=== PATIENT | male | born 1990 | race Two or more races ===

== ENCOUNTER 2018-10-16 23:11 | Emergency (ER) | payer MEDICAID ==
[~2018-10-16] VITALS: Ht 177.8 cm; Wt 131.5 kg
[2018-10-16 23:20] VITALS: BP 133/89
--- NOTE | 2018-10-16 23:20 | NUR ---
ED Nurse Note: PT WALKED IN FOR MED REFILL, PT STATES HE TAKES KEPPRA 1000MG BID. WILL CONT MONITOR.
[2018-10-16] MEDS ORDERED: KEPPRA1000 MG ORAL (23:33)
--- NOTE | 2018-10-16 23:33 | Emergency Room Report ---
History of Present Illness General Chief Complaint: Medication Refill Source: Patient Present Illness HPI This is a 28-year-old male with a history of new onset seizure. He is taking Keppra. He presents with chief complaint of medication refill. He has 1 dose left. He is scheduled to see primary care doctor next week for the first time. He needs refill. Denies any seizure activity. No other complaint. Allergies: Coded Allergies: No Known Allergies (Unverified , 10/16/18) Patient History Past Medical History: see triage record, old chart reviewed, seizures Past Surgical History: none Pertinent Family History: none Social History: Denies: smoking Immunizations: other Reviewed Nursing Documentation: PMH: Agreed; PSxH: Agreed Nursing Documentation-PMH Past Medical History: No History, Except For Hx Seizures: Yes Review of Systems Eye: Denies: eye pain, blurred vision ENT: Denies: ear pain, nose congestion, throat swelling Respiratory: Denies: cough, shortness of breath Cardiovascular: Denies: chest pain, palpitations Gastrointestinal: Denies: abdominal pain, diarrhea, nausea, vomiting Musculoskeletal: Denies: back pain, joint pain Skin: Denies: rash Neurological: Denies: headache, numbness Endocrine: Denies: increased thirst, increased urine Hematologic/Lymphatic: Denies: easy bruising All Other Systems: negative except mentioned in HPI Physical Exam Vital Signs Date Time Temp Pulse Resp B/P (MAP) Pulse Ox O2 Delivery O2 Flow Rate FiO2 10/16/18 23:20 98.2 85 18 133/89 (104) 100 Room Air Vitals normal Sp02 EP Interpretation: reviewed, normal General Appearance: well appearing, no apparent distress, alert Head: normocephalic, atraumatic Eyes: bilateral eye PERRL, bilateral eye EOMI ENT: hearing grossly normal, normal pharynx Neck: full range of motion, supple, no meningismus Respiratory: chest non-tender, lungs clear, normal breath sounds Cardiovascular #1: regular rate, rhythm, no murmur Gastrointestinal: normal bowel sounds, non tender, no mass, no organomegaly, no bruit, non-distended Musculoskeletal: back normal, gait/station normal, normal range of motion Psychiatric: mood/affect normal Medical Decision Making Diagnostic Impression: Primary Impression: Encounter for medication refill ER Course Here for refill on his Keppra. No active seizure. Last Vital Signs Date Time Temp Pulse Resp B/P (MAP) Pulse Ox O2 Delivery O2 Flow Rate FiO2 10/16/18 23:20 98.2 85 18 133/89 (104) 100 Room Air Status: unchanged Disposition: HOME, SELF-CARE Condition: Stable Scripts Levetiracetam (KEPPRA) 1,000 Mg Tablet 1000 MG ORAL DAILY, #60 TAB 0 Refills Prov: Oswaldo Ferraro MD 10/16/18 Referrals: NOT CHOSEN [facility]/,REFERRING (PCP) Patient Instructions: Medicine Refill at the Emergency Department Additional Instructions: Follow-up with your doctor next week as scheduled. Return if worse. Oswaldo Ferraro MD Oct 16, 2018 23:33
--- NOTE | 2018-10-16 23:35 | NUR ---
ED Nurse Note: PT CLEARED TO BE D/C PER ERMD, PT DISCHARGE AND AFTERCARE INSTRUCTION PROVIDED W/ PRESCRIPTION, PT EDUCATION DONE VIA DISCUSSION AND HANDOUT, PT ADVISED TO FOLLOW UP WITH PCP OR RETURN TO ED IF CHANGES IN CONDITION, VSS, AMBULATORY W/ STEADY GAIT, LEFT W/ ALL BELONGINGS, ACCOMPANIED BY .
[2018-10-16 23:36] VITALS: BP 128/76
== END 2018-10-16 23:36 | disposition home or self-care (01) ==
LOC: EMR 23:23
DX: Z76.0 Encounter for issue of repeat prescription (principal); G40.909 Epilepsy, unspecified, not intractable, without status epilepticus
CPT/HCPCS: 99282

== ENCOUNTER 2019-06-04 20:03 | Emergency (ER) | payer SELFPAY ==
[~2019-06-04] VITALS: Ht 175.3 cm; Wt 136.1 kg
[~2019-06-04 20:03] MED LIST: KEPPRA1000 MG ORAL
[2019-06-04 20:20] VITALS: BP 140/85
--- NOTE | 2019-06-04 20:20 | NUR ---
ED Nurse Note: Patient walked in to ER c/o facial spasm and headache x1. Patient reports hx of seizures; compliant with medication. Last sz was october 2018. Patient presentd anxious, crying, aAO x4, VSS at this time, ski is warm to touch.
[2019-06-04] MEDS ORDERED: Acetaminophen 500mg (ES) tab ORAL ONE (20:30)
[2019-06-04] MEDS ORDERED: DiphenhydrAMINE 50mg/ml Inj IVP ONE (20:30)
--- NOTE | 2019-06-04 20:46 | Diagnostic Imaging Report ---
EXAM: CT Head Without Intravenous Contrast CLINICAL HISTORY: H/A TECHNIQUE: Axial computed tomography images of the head/brain without intravenous contrast. CTDI is 53 mGy and DLP is 1095 mGy-cm. One or more of the following dose reduction techniques were used: automated exposure control, adjustment of the mA and/or kV according to patient size, use of iterative reconstruction technique. COMPARISON: No relevant prior studies available. FINDINGS: Brain: Negative for mass, mass-effect or intracranial hemorrhage. No significant white matter disease. Ventricles: Unremarkable. No ventriculomegaly. Bones/joints: Unremarkable. No acute fracture. Soft tissues: Unremarkable. Sinuses: Unremarkable as visualized. No acute sinusitis. Mastoid air cells: Unremarkable as visualized. No mastoid effusion. IMPRESSION: No acute intracranial abnormality.
--- NOTE | 2019-06-04 20:53 | Emergency Room Report ---
History of Present Illness General Chief Complaint: Headache Source: Patient Present Illness HPI 28-year-old male yesterday felt like he was about to have a seizure but did not have a seizure he felt his left face started twitching and a mild headache, no known aggravating or relieving factors severity was mild lasting few minutes patient was worried became very anxious he currently takes 1 g of Keppra every day twice a day. Patient did not have bowel bladder incontinence no tongue biting patient presents for evaluation Allergies: Coded Allergies: No Known Allergies (Unverified , 10/16/18) Patient History Past Medical History: see triage record Reviewed Nursing Documentation: PMH: Agreed; PSxH: Agreed Nursing Documentation-PMH Past Medical History: No History, Except For Hx Seizures: Yes Review of Systems All Other Systems: negative except mentioned in HPI Physical Exam Vital Signs Date Time Temp Pulse Resp B/P (MAP) Pulse Ox O2 Delivery O2 Flow Rate FiO2 06/04/19 20:12 98.4 92 14 140/85 (103) 95 Room Air Sp02 EP Interpretation: reviewed, normal General Appearance: well appearing, no apparent distress, alert Head: normocephalic, atraumatic Eyes: bilateral eye PERRL, bilateral eye EOMI ENT: uvula midline, moist mucus membranes Neck: supple, thyroid normal, supple/symm/no masses Respiratory: lungs clear, no respiratory distress, no retraction, no accessory muscle use Cardiovascular #1: normal peripheral pulses, regular rate, rhythm, no edema, no gallop, no murmur Gastrointestinal: non tender, soft, no guarding, no rebound Musculoskeletal: normal inspection Neurologic: alert, oriented x3 Psychiatric: anxious Skin: no rash, warm/dry Medical Decision Making Diagnostic Impression: Primary Impression: Headache Qualified Codes: R51 - Headache ER Course 28-year-old male no red flags of headache patient may have had a focal seizure however remains to be determined, twitching self resolved, patient also utilizes marijuana occasionally We will provide patient with a headache cocktail CT scan is currently negative, will obtain blood work to determine if there is any electrolyte abnormalities will provide patient with his home dose of Keppra Disposition home with return precautions Patient patient will follow-up with neurology Laboratory Tests Test 06/04/19 20:50 White Blood Count 12.1 K/UL (4.8-10.8) H Red Blood Count 5.19 M/UL (4.70-6.10) Hemoglobin 14.8 G/DL (14.2-18.0) Hematocrit 47.2 % (42.0-52.0) Mean Corpuscular Volume 91 FL (80-99) Mean Corpuscular Hemoglobin 28.6 PG (27.0-31.0) Mean Corpuscular Hemoglobin Concent 31.4 G/DL (32.0-36.0) L Red Cell Distribution Width 13.8 % (11.6-14.8) Platelet Count 297 K/UL (150-450) Mean Platelet Volume 8.0 FL (6.5-10.1) Neutrophils (%) (Auto) 64.1 % (45.0-75.0) Lymphocytes (%) (Auto) 25.7 % (20.0-45.0) Monocytes (%) (Auto) 8.0 % (1.0-10.0) Eosinophils (%) (Auto) 0.7 % (0.0-3.0) Basophils (%) (Auto) 1.5 % (0.0-2.0) Prothrombin Time 10.0 SEC (9.30-11.50) Prothrombin Time INR 0.9 (0.9-1.1) Activated Partial Thromboplast Time 29 SEC (23-33) Sodium Level 146 MMOL/L (136-145) H Potassium Level 4.8 MMOL/L (3.5-5.1) Chloride Level 107 MMOL/L (98-107) Carbon Dioxide Level 27 MMOL/L (21-32) Anion Gap 12 mmol/L (5-15) Blood Urea Nitrogen 14 mg/dL (7-18) Creatinine 0.8 MG/DL (0.55-1.30) Estimate Glomerular Filtration Rate > 60 mL/min (>60) Glucose Level 96 MG/DL (74-106) Calcium Level 9.2 MG/DL (8.5-10.1) Total Bilirubin Pending Aspartate Amino Transferase (AST) Pending Alanine Aminotransferase (ALT) Pending Alkaline Phosphatase Pending Total Protein Pending Albumin Pending Globulin Pending CT/MRI/US Diagnostic Results CT/MRI/US Diagnostic Results : Impression Procedure: CT Head no Contrast EXAM: CT Head Without Intravenous Contrast CLINICAL HISTORY: H/A TECHNIQUE: Axial computed tomography images of the head/brain without intravenous contrast. CTDI is 53 mGy and DLP is 1095 mGy-cm. One or more of the following dose reduction techniques were used: automated exposure control, adjustment of the mA and/or kV according to patient size, use of iterative reconstruction technique. COMPARISON: No relevant prior studies available. FINDINGS: Brain: Negative for mass, mass-effect or intracranial hemorrhage. No significant white matter disease. Ventricles: Unremarkable. No ventriculomegaly. Bones/joints: Unremarkable. No acute fracture. Soft tissues: Unremarkable. Sinuses: Unremarkable as visualized. No acute sinusitis. Mastoid air cells: Unremarkable as visualized. No mastoid effusion. IMPRESSION: No acute intracranial abnormality. Dictated By: Nura Garcia DO Electronically Signed By: Nura Garcia DO Signed Date/Time 06/04/192044 CC: Rony Ruiz MD Last Vital Signs Date Time Temp Pulse Resp B/P (MAP) Pulse Ox O2 Delivery O2 Flow Rate FiO2 06/04/19 20:12 98.4 92 14 140/85 (103) 95 Room Air Disposition: HOME, SELF-CARE Condition: Stable Referrals: [facility]. [facility] Patient Instructions: General Headache Without Cause Additional Instructions: The patient was provided with discharge instructions, notified to follow-up with a primary care doctor and or specialist in the next 24-48 hours, and to return to the ED if they have worsening of their symptoms. Please note that this report is being documented using [employer] technology. This can lead to erroneous entry secondary to incorrect interpretation by the dictating instrument. Rony Ruiz MD Jun 04, 2019 20:53
[2019-06-04 21:17] LABS: BASOPHILS % (AUTO) 1.5 % (0.0-2.0); EOSINOPHILS % (AUTO) 0.7 % (0.0-3.0); HEMATOCRIT 47.2 % (42.0-52.0); HEMOGLOBIN 14.8 G/DL (14.2-18.0); LYMPHOCYTES % (AUTO) 25.7 % (20.0-45.0); MEAN CORPUSCULAR VOLUME 91 FL (80-99); NEUTROPHILS % (AUTO) 64.1 % (45.0-75.0); PLATELET COUNT 297 K/UL (150-450); RED BLOOD COUNT 5.19 M/UL (4.70-6.10); RED CELL DISTRIBUTION WIDTH 13.8 % (11.6-14.8); WHITE BLOOD COUNT 12.1 K/UL (4.8-10.8)
[2019-06-04 21:19] LABS: INR 0.9 (0.9-1.1)
[2019-06-04 21:26] LABS: ANION GAP 12 mmol/L (5-15); BLOOD UREA NITROGEN 14 mg/dL (7-18); CALCIUM 9.2 MG/DL (8.5-10.1); CARBON DIOXIDE 27 MMOL/L (21-32); CHLORIDE 107 MMOL/L (98-107); CREATININE 0.8 MG/DL (0.55-1.30); POTASSIUM 4.8 MMOL/L (3.5-5.1); SODIUM 146 MMOL/L (136-145)
[2019-06-04 21:30] VITALS: BP 140/85
[2019-06-04 21:30] LABS: ALANINE AMINOTRANSFERASE 36 U/L (12-78); ALBUMIN 4.2 G/DL (3.4-5.0); ALBUMIN/GLOBULIN RATIO 1.1 (1.0-2.7); ALKALINE PHOSPHATASE 84 U/L (46-116); ASPARTATE AMINO TRANSFERASE 32 U/L (15-37); BILIRUBIN,TOTAL 0.5 MG/DL (0.2-1.0)
--- NOTE | 2019-06-04 21:30 | NUR ---
ED Nurse Note: Pt cleared by health care Provider for discharge. DC instructions/prescription was given and explained to pt and verbalized understanding of teachings. All medical deviecs such as ID band removed. Pt is AAO x4, ambulatory and left with all personal belongings.
== END 2019-06-04 21:30 | disposition home or self-care (01) ==
LOC: EMR 20:49
DX: R51 Headache (principal); G40.909 Epilepsy, unspecified, not intractable, without status epilepticus; Z79.899 Other long term (current) drug therapy
CPT/HCPCS: 36415; 70450; 80053; 80299; 85025; 85610; 85730; 96361; 96374; 96375; 99284; J0780; J1200; J7030

== ENCOUNTER 2020-02-26 17:02 | Emergency (ER) | payer MEDICAID ==
[~2020-02-26] VITALS: Ht 177.8 cm; Wt 147.9 kg
--- NOTE | 2020-02-26 17:30 | NUR ---
ED Nurse Note: pt presents to ED c/o dizziness and palpitations off and on for last few months. pt thinks that it may be related to him stopping his keppra. pt states that he ran out of his keppra and last had some 1 month ago. pt also reports numbness behind his eyes. no other complaints at this time
[2020-02-26 17:32] VITALS: BP 137/79
--- NOTE | 2020-02-26 17:46 | Emergency Room Report ---
History of Present Illness General Chief Complaint: General Complaint Source: Patient (Chinyere Pruitt PA-C) Present Illness HPI 29-year-old male with past medical history of seizures presents today with symptoms of dizziness. He states the dizziness began about 3 weeks ago, occurs every other day and last for about 5 minutes. He states when he is anxious he feels the symptoms come on and relaxing makes the symptoms go away. Other associated symptoms are heart palpitations which patient states that he has been experiencing for years. He denies any fevers chills nausea or vomiting. Denies any current headache. Location is head, severity is mild. Of note patient states he takes 1000 mg of Keppra twice daily however he states he ran out of the medication 1 month ago. He states he does have a primary care doctor however he has not gone in to see him for refill. PMH: Seizure disorder PSH: [Denies] Smoking: Confirms less than 1 pack a day Ethanol: [Denies] Drug: Marijuana usage (Chinyere Pruitt PA-C) Allergies: Coded Allergies: No Known Allergies (Unverified , 10/16/18) COVID-19 Screening Contact w/high risk pt: No Experienced COVID-19 symptoms?: No COVID-19 Testing performed DIRECTOR OF SOCIAL SERVICES: No (Chinyere Pruitt PA-C) Nursing Documentation-PMH Past Medical History: No History, Except For Hx Seizures: Yes (Chinyere Pruitt PA-C) Review of Systems Narrative Review of systems: CONST: No fevers or chills, No night sweats EYES: No eye pain, vision change, eye discharge HEAD/EARS/NOSE/THROAT: No earache, sore throat, or nasal discharge. PULMONARY: No SOB, no cough, no wheezing CARDIAC: No chest pain, + palpitations, no leg swelling GI: No abdominal pain, no vomiting, no diarrhea , no melena or BRBPR : No flank pain, no dysuria, no hematuria, no frequency. MUSCULOSKELETAL: No back pain, no neck pain, no leg pain SKIN: No rash, no itching, no bruising NEUROLOGICAL: No headache, + dizziness, no paresthesia , no focal weakness. 14 point Review of Systems is otherwise negative except per HPI (Chinyere Pruitt PA-C) Physical Exam Vital Signs Date Time Temp Pulse Resp B/P (MAP) Pulse Ox O2 Delivery O2 Flow Rate FiO2 02/26/20 17:09 98.2 103 17 137/79 (98) 99 Room Air Other Organ Systems Physical Exam: GENERAL: Awake, alert, nontoxic, in no acute distress EYES: EOMI, conjunctiva without pallor HEAD/EARS/NOSE/THROAT: NCAT, oral mucosa moist, external nose and ear normal in appearance, oropharynx clear, no swelling or exudates. NECK: supple, nontender, no spasm, no JVD, no cervical adenopathy RESPIRATORY: no stridor, effort normal, no retractions, no accessory muscle use, BS clear bilaterally, no wheezes, no rhonchi, no rales, no rub. CARDIOVASCULAR: RRR, normal S1 S2, no murmur, no peripheral edema ABDOMINAL /GI: soft, nondistended, nontender, BS normal, no masses, no guarding, no Mcburneys point tenderness, no rebound, no Murpheys sign : No CVA tenderness MUSCULOSKELETAL: All extremities are non-tender, no swelling, FROM, normal strength, normal sensation, cap refill <2 seconds in all extremities EXTREMITIES: no leg swelling, pulses: 2+ brisk and normal in all distal extremities SKIN: No rash, skin is warm and dry. No cyanosis, no pallor NEUROLOGICAL: awake, alert and appropriate, oriented x3, speech normal, motor and sensation grossly intact, CN 2-12 intact, Finger to nose normal, no nystagmus, tandem gait normal, no pronator drift PSYCHIATRIC: Normal mood, normal affect (Chinyere Pruitt PA-C) Medical Decision Making PA Attestation Dr. Begum Is my supervising Physician whom patient management has been discussed with. (Chinyere Pruitt PA-C) Diagnostic Impression: Primary Impression: Dizziness ER Course Pt. presents to the ED c/o dizziness Ddx considered but are not limited to peripheral vertigo (including BPPV, vestibular neuritis, Menieres disease, viral labyrinthitis), causes of central vertigo (including cerebellar ischemic stroke, hemorrhagic stroke, acoustic neuroma, vertebrobasilar insufficiency), malignant arrhythmias, obstructive heart disease (critical aortic stenosis, hypertrophic cardiomyopathy), acute anemia, severe dehydration, electrolyte abnormalities, among others. Vital signs: are WNL, pt. is afebrile ORDERS: Labs, EKG, urine drug screen, orthostatics ED INTERVENTIONS and MDM DISCHARGE: The patient denies any external blood loss and has no significant pallor or evidence of acute anemia as a cause of their symptoms. Hemoglobin is not severely low, and acute blood transfusion is not indicated. EKG shows no signs of malignant arrhythmia such as Brugada syndrome, delta wave, significant heart block, or QTc >500. In addition, the patient has no loud murmur or evidence of significant obstructive heart disease, symptoms are not in the setting of exertion. Labs show no severe electrolyte derangement such as severe hyponatremia, hypokalemia, acidosis, or hypoglycemia. Orthostatics done and WNL. Urine drug screen came back positive for marijuana however patient admits to smoking marijuana. Do not suspect overdose on drugs or intoxication at this time. The patient is neurologically intact, with normal cerebellar exam, without any evidence of central vertigo as a cause of their symptoms. They appear well hydrated without any evidence of severe dehydration or acute hypovolemia. The patient was observed for a period of time, with symptoms improved, and no emergent cause of their symptoms. The patient appears stable for discharge and to follow up with their regular doctor. Patient does state that he has a seizure disorder and that he ran out of his Keppra 1 month ago and therefore Keppra prescription was refilled at this time however I explained to patient he needs to follow-up with his primary care doctor for further prescriptions. At this time pt. is stable for d/c to home. Will provide printed patient care instructions, and any necessary prescriptions. Care plan and follow up instructions have been discussed with the patient prior to discharge. Laboratory Tests Test 02/26/20 17:45 02/26/20 18:45 White Blood Count 11.1 K/UL (4.8-10.8) H Red Blood Count 5.38 M/UL (4.70-6.10) Hemoglobin 15.7 G/DL (14.2-18.0) Hematocrit 48.8 % (42.0-52.0) Mean Corpuscular Volume 91 FL (80-99) Mean Corpuscular Hemoglobin 29.2 PG (27.0-31.0) Mean Corpuscular Hemoglobin Concent 32.3 G/DL (32.0-36.0) Red Cell Distribution Width 13.5 % (11.6-14.8) Platelet Count 293 K/UL (150-450) Mean Platelet Volume 7.6 FL (6.5-10.1) Neutrophils (%) (Auto) 74.4 % (45.0-75.0) Lymphocytes (%) (Auto) 14.8 % (20.0-45.0) L Monocytes (%) (Auto) 8.6 % (1.0-10.0) Eosinophils (%) (Auto) 0.8 % (0.0-3.0) Basophils (%) (Auto) 1.4 % (0.0-2.0) Sodium Level 138 MMOL/L (136-145) Potassium Level 4.1 MMOL/L (3.5-5.1) Chloride Level 104 MMOL/L (98-107) Carbon Dioxide Level 26 MMOL/L (21-32) Anion Gap 8 mmol/L (5-15) Blood Urea Nitrogen 16 mg/dL (7-18) Creatinine 0.8 MG/DL (0.55-1.30) Estimated Glomerular Filtration Rate > 60 mL/min (>60) Glucose Level 112 MG/DL (74-106) H Calcium Level 8.8 MG/DL (8.5-10.1) Total Bilirubin 0.3 MG/DL (0.2-1.0) Aspartate Amino Transferase (AST) 28 U/L (15-37) Alanine Aminotransferase (ALT) 37 U/L (12-78) Alkaline Phosphatase 83 U/L (46-116) Total Protein 7.6 G/DL (6.4-8.2) Albumin 3.9 G/DL (3.4-5.0) Globulin 3.7 g/dL Albumin/Globulin Ratio 1.1 (1.0-2.7) Urine Opiates Screen Negative (NEGATIVE) Urine Barbiturates Screen Negative (NEGATIVE) Phencyclidine (PCP) Screen Negative (NEGATIVE) Urine Amphetamines Screen Negative (NEGATIVE) Urine Benzodiazepines Screen Negative (NEGATIVE) Urine Cocaine Screen Negative (NEGATIVE) Urine Marijuana (THC) Screen Positive (NEGATIVE) H (Chinyere Pruitt PA-C) EKG Diagnostic Results Troponin ordered: No - sxs not cardiac related, no chest pain, no risk factors EKG Time: 17:41 Rate: normal Rhythm: NSR ST Segments: no acute changes Other Impression No acute ST or T wave changes ASA given to the pt in ED: No PA Scribe Text This interpretation was scribed by the PA (Chinyere Pruitt PA-C) Last Vital Signs Date Time Temp Pulse Resp B/P (MAP) Pulse Ox O2 Delivery O2 Flow Rate FiO2 02/26/20 17:32 103 17 Room Air 02/26/20 17:32 98.2 137/79 99 Status: improved (Chinyere Pruitt PA-C) Disposition: HOME, SELF-CARE Condition: Stable Scripts Levetiracetam (KEPPRA) 1,000 Mg Tablet 1000 MG ORAL BID, #60 TAB 0 Refills Prov: Xiomara Andrade 02/26/20 Referrals: [facility],REFERRING (PCP) Patient Instructions: Dizziness Additional Instructions: Take medications as directed. Follow up with a Primary Care Provider in 1-2 days, even if your symptoms have resolved. Return sooner to ED if new symptoms occur, or current symptoms become worse. - Please note that this Emergency Department Report was dictated using [employer] timers technology software, occasionally this can lead to erroneous entry secondary to interpretation by the dictation equipment. Chinyere Pruitt PA-C Feb 26, 2020 17:46 Maksim Begum MD Feb 27, 2020 03:31
[2020-02-26 18:00] VITALS: BP 121/74
[2020-02-26 18:00] LABS: BASOPHILS % (AUTO) 1.4 % (0.0-2.0); EOSINOPHILS % (AUTO) 0.8 % (0.0-3.0); HEMATOCRIT 48.8 % (42.0-52.0); HEMOGLOBIN 15.7 G/DL (14.2-18.0); LYMPHOCYTES % (AUTO) 14.8 % (20.0-45.0); MEAN CORPUSCULAR VOLUME 91 FL (80-99); MONOCYTES % (AUTO) 8.6 % (1.0-10.0); NEUTROPHILS % (AUTO) 74.4 % (45.0-75.0); PLATELET COUNT 293 K/UL (150-450); RED BLOOD COUNT 5.38 M/UL (4.70-6.10); RED CELL DISTRIBUTION WIDTH 13.5 % (11.6-14.8); WHITE BLOOD COUNT 11.1 K/UL (4.8-10.8)
--- NOTE | 2020-02-26 18:01 | NUR ---
ED Nurse Note: orthostatics- lyin/74 HR: 88 sitting up: 128/83 HR: 97 standing up: 128/79 HR: 99
[2020-02-26 18:14] LABS: ANION GAP 8 mmol/L (5-15); BLOOD UREA NITROGEN 16 mg/dL (7-18); CALCIUM 8.8 MG/DL (8.5-10.1); CARBON DIOXIDE 26 MMOL/L (21-32); CHLORIDE 104 MMOL/L (98-107); CREATININE 0.8 MG/DL (0.55-1.30); POTASSIUM 4.1 MMOL/L (3.5-5.1); SODIUM 138 MMOL/L (136-145)
[2020-02-26 18:19] LABS: ALANINE AMINOTRANSFERASE 37 U/L (12-78); ALBUMIN 3.9 G/DL (3.4-5.0); ALBUMIN/GLOBULIN RATIO 1.1 (1.0-2.7); ALKALINE PHOSPHATASE 83 U/L (46-116); ASPARTATE AMINO TRANSFERASE 28 U/L (15-37); BILIRUBIN,TOTAL 0.3 MG/DL (0.2-1.0)
[2020-02-26] MEDS ORDERED: KEPPRA1000 MG ORAL (18:32)
[2020-02-26 18:46] VITALS: BP 121/74
--- NOTE | 2020-02-26 19:46 | NUR ---
ER DISCHARGE NOTE: Patient is cleared to be discharged per ERMD, pt is aox4, on room air, with stable vital signs. pt was given dc and prescription instructions, pt was able to verbalize understanding, pt id band removed without complications. pt is able to ambulate with steady gait. pt took all belongings.
--- NOTE | 2020-02-27 20:37 | Cardiology Report ---
APPROVED REPORT EKG Measurement Heart [id number] <Conclusion> Normal sinus rhythm Normal ECG
== END 2020-02-26 19:46 | disposition home or self-care (01) ==
LOC: EMR 17:26
DX: R42 Dizziness and giddiness (principal); G40.909 Epilepsy, unspecified, not intractable, without status epilepticus; F17.200 Nicotine dependence, unspecified, uncomplicated; F12.90 Cannabis use, unspecified, uncomplicated; Z79.899 Other long term (current) drug therapy
CPT/HCPCS: 36415; 80053; 80307; 85025; 93005; Z7502; 99284

== ENCOUNTER 2020-03-17 13:03 | Emergency (ER) | payer MEDICAID ==
[~2020-03-17] VITALS: Ht 177.8 cm; Wt 147.4 kg
[2020-03-17 13:30] VITALS: BP 131/87
--- NOTE | 2020-03-17 13:30 | NUR ---
ED Nurse Note: Pt walked into ED for R arm numbness since 1 hour ago. Pt denies injury, no wounds. ROM R arm 4/5. Pt is alert and orientedx4, ambulatory. Bilateral radial pulses 3+. Pt has been seen by ROCHELLE.
--- NOTE | 2020-03-17 13:47 | Emergency Room Report ---
History of Present Illness General Chief Complaint: General Complaint Source: Patient Present Illness HPI 29-year-old male with history of seizures and currently taking Keppra presents to the emergency department complaining of transient episode of numbness in the left arm and palpitations. Patient reports acute onset low exercising. Patient states that palpitations resolved spontaneously however he states he still has some slight numbness in the left arm. Patient denies sleeping in any awkward positions last night. He denies neck or back injury or pain. Patient denies trauma or fall. He denies cardiac history or thyroid disorder. Patient reports familial history of diabetes, high blood pressure and cardiac with his mother. Denies family hx of sudden cardiac . Patient denies having experienced symptoms like this in the past. Patient reports he did feel lightheaded as well. Patient denies dizziness. He reports lightheadedness resolved spontaneously on its own after sitting and resting. He denies syncope. Patient denies recent seizure. He denies fevers or chills. Nausea or vomiting. Visual changes or auditory changes. He denies muscle weakness, fatigue or loss of gross motor movements in the affected extremity. He denies slurred speech, headache, facial droop or difficulty with speech or memory. No other aggravating or reliving factors at this time. He denies DM. Pt. reports during transient episode pt. experienced being very "thirsty". He denies polyuria. He denies use of pre-work out supplements or caffeine. Pt. reports not eating today prior to workout. He denies smoking or drug use. Allergies: Coded Allergies: No Known Allergies (Unverified , 10/16/18) COVID-19 Screening Contact w/high risk pt: No Experienced COVID-19 symptoms?: No COVID-19 Testing performed OIL BURNER: No Patient History Past Medical History: see triage record Past Surgical History: none Pertinent Family History: none Reviewed Nursing Documentation: PMH: Agreed; PSxH: Agreed Nursing Documentation-PMH Hx Seizures: Yes Review of Systems All Other Systems: negative except mentioned in HPI Physical Exam Vital Signs Date Time Temp Pulse Resp B/P (MAP) Pulse Ox O2 Delivery O2 Flow Rate FiO2 03/17/20 13:06 98.1 108 17 136/81 (99) 95 Room Air Sp02 EP Interpretation: reviewed, normal General Appearance: well appearing, no apparent distress, alert, GCS 15, non- toxic, obese Head: normocephalic, atraumatic Eyes: bilateral eye normal inspection, bilateral eye PERRL ENT: hearing grossly normal, normal voice Neck: full range of motion, no meningismus, no bony tend, supple/symm/no masses Respiratory: chest non-tender, lungs clear, normal breath sounds, no respiratory distress, no accessory muscle use, no wheezing, speaking full sentences Cardiovascular #1: regular rate, rhythm, no edema, normal capillary refill Cardiovascular #2: 2+ radial (R), 2+ radial (L) Musculoskeletal: back normal, normal range of motion, gait/station normal, non- tender Neurologic: alert, motor strength/tone normal, oriented x3, sensory intact, responsive, speech normal, normal gait, no pronator, grossly normal, no focal defects Psychiatric: judgement/insight normal Skin: no rash, normal color Medical Decision Making PA Attestation Dr. aHuser is my supervising Physician whom patient management has been discussed with. Diagnostic Impression: Primary Impression: Palpitation Additional Impression: Paresthesia of arm ER Course 29-year-old male with history of seizures and currently taking Keppra presents to the emergency department complaining of transient episode of numbness in the left arm and palpitations. Patient reports acute onset low exercising. Patient states that palpitations resolved spontaneously however he states he still has some slight numbness in the left arm. Patient denies sleeping in any awkward positions last night. He denies neck or back injury or pain. Patient denies trauma or fall. He denies cardiac history or thyroid disorder. Patient reports familial history of diabetes, high blood pressure and cardiac with his mother. Denies family hx of sudden cardiac . Patient denies having experienced symptoms like this in the past. Patient reports he did feel lightheaded as well. Patient denies dizziness. He reports lightheadedness resolved spontane ously on its own after sitting and resting. He denies syncope. Patient denies recent seizure. He denies fevers or chills. Nausea or vomiting. Visual changes or auditory changes. He denies muscle weakness, fatigue or loss of gross motor movements in the affected extremity. He denies slurred speech, headache, facial droop or difficulty with speech or memory. No other aggravating or reliving factors at this time. He denies DM. Pt. reports during transient episode pt. experienced being very "thirsty". He denies polyuria. He denies use of pre-work out supplements or caffeine. Pt. reports not eating today prior to workout. He denies smoking or drug use. Ddx considered but are not limited to [place], arrhythmia, hypokalemia, dehydration, WPW, hypoglycemia, anxiety reaction. Vital signs: are WNL, pt. is afebrile. H&PE are most consistent with normal medical screening exam, NAD, non-toxic in appearance. No focal neurological deficits. No muscle weakness. ORDERS: - EK NSR - accuCheck: 98 ED INTERVENTIONS: PT EDUCATION: hydrate before exercising. Follow up with PMD for cardiac referral for more in depth evaluation of symptoms. DISCHARGE: At this time pt. is stable for d/c to home. Will provide printed patient care instructions, and any necessary prescriptions. Care plan and follow up instructions have been discussed with the patient prior to discharge. EKG Diagnostic Results Troponin ordered: No EKG Time: 14:07 Rate: normal - 96 Rhythm: NSR ST Segments: no acute changes ASA given to the pt in ED: No PA Scribe Text This Interpretation was scribed by ROCHELLE Andrade. Last Vital Signs Date Time Temp Pulse Resp B/P (MAP) Pulse Ox O2 Delivery O2 Flow Rate FiO2 03/17/20 13:06 98.1 108 17 136/81 (99) 95 Room Air Status: improved Disposition: HOME, SELF-CARE Condition: Stable Referrals: [facility] Patient Instructions: Palpitations, [id number], Paresthesia, [id number] Additional Instructions: Take medications as directed. Follow up with a Primary Care Provider in 3-5 days, even if your symptoms have resolved. If Symptoms return CARDIOLOGY EVAL for Holter Monitoring recommended. A COPY OF YOUR EKG IS PROVIDED TO YOU TO TAKE TO YOUR FOLLOW UP APPT. * --Please review list of primary care clinics, if you do not already have a primary care provider Return sooner to ED if new symptoms occur, or current symptoms become worse. - Please note that this Emergency Department Report was dictated using [employer] technology software, occasionally this can lead to erroneous entry secondary to interpretation by the dictation equipment. Xiomara Andrade Mar 17, 2020 13:47
--- NOTE | 2020-03-17 15:04 | NUR ---
Note [email or web address] in EDM - 03/17/20 at 1505 by CHELY ER DISCHARGE NOTE: Patient is cleared to be discharged per ERMD, pt is aox4, on room air, with stable vital signs. pt was given dc and prescription instructions, pt was able to verbalize understanding, pt id band removed. pt is able to ambulate with steady gait. pt took all belongings. Pt provided COVID testing education and work note and copy of CXR.
--- NOTE | 2020-03-17 15:05 | NUR ---
ER DISCHARGE NOTE: Patient is cleared to be discharged per ERMD, pt is aox4, on room air, with stable vital signs. pt was given dc instructions, pt was able to verbalize understanding, pt id band removed. pt is able to ambulate with steady gait. pt took all belongings. Pt educated regarding f/u.
[2020-03-17 15:07] VITALS: BP 136/81
== END 2020-03-17 15:07 | disposition home or self-care (01) ==
LOC: EMR 13:35
DX: R00.2 Palpitations (principal); R20.2 Paresthesia of skin; G40.909 Epilepsy, unspecified, not intractable, without status epilepticus; Z79.899 Other long term (current) drug therapy
CPT/HCPCS: 82962; Z7502; 99283